=== PATIENT | female | born 1995 | race Two or more races ===

== ENCOUNTER 2024-09-28 02:35 | Emergency (ER) | payer MEDICAID, OTHER ==
[~2024-09-28] VITALS: Ht 147.3 cm; Wt 72.9 kg
[2024-09-28] MEDS ORDERED: ERY05OO OP (03:22)
--- NOTE | 2024-09-28 03:22 | ED.PDOC ---
Eye-HPI HPI Comments 29-YEAR-OLD FEMALE PRESENTS TO ER WITH RIGHT EYE COMPLAINT X2 DAYS. PATIENT REPORTS THAT SHE HAS BEEN EXPERIENCING REDNESS, MILD SWELLING TO RIGHT UPPER EYELID AND YELLOW CRUSTY DRAINAGE TO RIGHT EYE X2 DAYS. STATES THAT HER CHILDREN AT HOME HAVE ALSO BEEN EXPERIENCING SIMILAR SYMPTOMS AND WERE RECENTLY DIAGNOSED WITH PINK EYE. SHE REPORTS 8/10 BURNING/ITCHING PAIN TO RIGHT EYE. DENIES USE OF MEDICATIONS FOR CURRENT SYMPTOMS. PATIENT PRESENTS TO ER AMBULATORY ON ARRIVAL, WITH STEADY GAIT, IN NO DISTRESS. 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 History Family History Family History: Unknown Social History Smoker: Non-Smoker Alcohol: Denies ETOH Use Drugs: Denies Drug Use Lives In: Home Constitutional: denies: chills, diaphoresis, fatigue, fever, malaise, sweats, weakness, others EENTM: reports: others (As stated in HPI) Respiratory: denies: cough, hemoptysis, orthopnea, SOB at rest, shortness of breath, SOB with excertion, stridor, wheezing, others Cardiovascular: denies: chest pain, dizzy spells, diaphoresis, Dyspnea on exertion, edema, irregular heart beat, left arm pain, lightheadedness, palpitations, PND, syncope, others Gastrointestinal: denies: abdomen distended, abdominal pain, blood streaked bowels, constipated, diarrhea, dysphagia, difficulty swallowing, hematemesis, melena, nausea, poor appetite, poor fluid intake, rectal bleeding, rectal pain, vomiting, others Genitourinary: denies: abnormal vagina bleeding, burning, dyspareunia, dysuria, flank pain, frequency, hematuria, incontinence, pain, , vagina discharge, urgency, others Neurological: denies: dizziness, fainting, headache, left sided numbness, left sided weakness, numbness, paresthesia, pre-existing deficit, right sided numbness, right sided weakness, seizure, speech problems, tingling, tremors, weakness, others Musculoskeletal: denies: back pain, gout, joint pain, joint swelling, muscle pain, muscle stiffness, neck pain, others Integumetry: denies: bruises, change in color, change in hair/nails, dryness, laceration, lesions, lumps, rash, wounds, others Allergic/Immunocompromised: denies: Difficulty Healing, Frequent Infections, Hives, Itching, others Hematologic/Lymphatic: denies: anemia, blood clots, easy bleeding, easy bruising, swollen glands, others Endocrine: denies: excessive hunger, excessive sweating, excessive thirst, excessive urination, flushing, intolerance to cold, intolerance to heat, unexplained weight gain, unexplained weight loss, others Psychiatric: denies: anxiety, bipolar disorder, depression, hopeless, panic disorder, schizophrenia, sleepless, suicidal, others Physical Exam General Appearance: No Apparent Distress HEENT: PERRL/EOMI, Pharynx Normal, TMs Normal, Other (Mild yellow crusty drainage and subconjunctival injection noted to right eye, mild swelling also noted to right upper eyelid, no foreign body appreciated, no further skin changes noted) Neck: Full Range of Motion, Non-Tender, Normal Respiratory: Chest Non-Tender, Lungs Clear, No Accessory Muscle Use, No Re spiratory Distress, Normal Breath Sounds Cardiovascular: No Murmur, No Gallop, Regular Rate/Rhythm Breast Exam: Deferred Gastrointestinal: NOT DONE Genitalia: Deferred Pelvic: Deferred Rectal: Deferred Extremities: Normal capillary refill, Normal range of motion Neurologic: Alert, quill cleaner II-XII nml as Tested, No Motor Deficits, Normal Affect, Normal Mood, No Sensory Deficits Cerebellar Function: Normal Reflexes: Normal Skin: Dry, Normal Color, Warm Lymphatic: No Adenopathy Was a procedure done? Was a procedure done?: No Sedation Sedation?: No EENT DIFF Eye: Corneal Abrasion, Foreign Body-Corneal, Orbital Cellulits, Periorbital Cellulits X-Ray, Labs, Meds, VS ERYTHROMYCIN OINTMENT ORDERED, PATIENT EDUCATED ON PROPER USE/DOSAGE IMPORTANCE OF GOOD HAND HYGIENE DISCUSSED AND ADVISED ADVISED TO FOLLOW UP WITH OPHTHALMOLOGY IN 3-4 DAYS IF SYMPTOMS DO NOT IMPROVE ADVISED TO FOLLOW UP WITH PCP IN 1-2 DAYS PATIENT VERBALIZED UNDERSTANDING AND AGREEABLE WITH CURRENT PLAN OF CARE ADVISED TO RETURN TO ER IMMEDIATELY IF SYMPTOMS WORSEN Time of 1ST Reevaluation: 03:04 Reevaluation 1ST: N/A Patient Education/Counseling: Diagnosis, Treatment, Prognosis, Need For Follow Up Family Education/Counseling: No Family Present Departure 1 Departure Time of Disposition: 03:20 Impression: Primary Impression: Bacterial conjunctivitis of right eye Disposition: 01 HOME / SELF CARE / HOMELESS Condition: Stable e-Prescriptions Erythromycin (Erythromycin) 5 Mg/Gm Oin 1 MG OP 6XD for 7 Days, #1 OIN 0 Refills Prov: SRIDHAR BARNES 09/28/24 Discharged With: Self Critical Care Note Critical Care Time?: No Stability Stability form required: No Heart Score Heart Score: Heart Score Response (Comments) Value History N/A 0 EKG N/A 0 Age N/A 0 Risk Factors N/A 0 Troponin N/A 0 Total 0 SRIDHAR BARNES Sep 28, 2024 03:22
[2024-09-28 03:24] VITALS: BP 136/94; PULSE 80; RESP 12; TEMP 98.7; O2SAT 100
[2024-09-28] MEDS: ERYTHROMY OPTH OINT 5mg/gm 1gm or 3.5gm tube OP ONE (03:51)
== END 2024-09-28 03:45 | disposition home or self-care (01) ==
LOC: ER 02:35
DX: H10.89 Other conjunctivitis (principal); J45.909 Unspecified asthma, uncomplicated; Z98.890 Other specified postprocedural states

== ENCOUNTER 2025-08-15 11:34 | Observation (INO) | payer MEDICAID ==
[2025-08-15] VITALS (9 sets, daily range): BP systolic 119–131; BP diastolic 74–87; PULSE 99–129; RESP 14–18; TEMP 97.8–98.7; O2SAT 94–99
[~2025-08-15] VITALS: Ht 144.8 cm; Wt 76.2 kg
[~2025-08-15 11:34] MED LIST: ERY05OO OP
--- NOTE | 2025-08-15 12:16 | ED.PDOC ---
History of Present Illness HPI Comments 30-year-old female presents to the ER with spouse, prior medical history of asthma: Surgical history of and the chief complaint of shortness a breath. Patient reports on having tingling sensation on the bilateral hands associated with headache, diarrhea and shortness a breath with ambulation since Thursday of 08/13/2025. Denies any other symptoms at this time. Denies chills, fever, N/V, CP. No other associated symptoms, modifiers, recent injuries or sick contacts present at this time. 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 MAINTAINER History Family History Family History: Reviewed,noncontributory to illness, Unknown Social History Smoker: Non-Smoker Alcohol: Denies ETOH Use Drugs: Denies Drug Use Lives In: Home Constitutional: denies: chills, diaphoresis, fatigue, fever, malaise, sweats, weakness, others EENTM: denies: blurred vision, double vision, ear bleeding, ear discharge, ear drainage, ear pain, ear ringing, eye pain, eye redness, hearing loss, mouth pain, mouth swelling, nasal discharge, nose bleeding, nose congestion, nose pain, photophobia, tearing, throat pain, throat swelling, voice changes, others Respiratory: reports: shortness of breath, SOB with excertion; denies: cough, hemoptysis, orthopnea, SOB at rest, stridor, wheezing, others Cardiovascular: denies: chest pain, dizzy spells, diaphoresis, Dyspnea on exertion, edema, irregular heart beat, left arm pain, lightheadedness, palpitations, PND, syncope, others Gastrointestinal: reports: diarrhea; denies: abdomen distended, abdominal pain, blood streaked bowels, constipated, dysphagia, difficulty swallowing, hematemesis, melena, nausea, poor appetite, poor fluid intake, rectal bleeding, rectal pain, vomiting, others Genitourinary: denies: abnormal vagina bleeding, burning, dyspareunia, dysuria, flank pain, frequency, hematuria, incontinence, pain, , vagina discharge, urgency, others Neurological: reports: headache, tingling (Bilateral hands); denies: dizziness, fainting, left sided numbness, left sided weakness, numbness, paresthesia, pre- existing deficit, right sided numbness, right sided weakness, seizure, speech problems, tremors, weakness, others Musculoskeletal: denies: back pain, gout, joint pain, joint swelling, muscle pain, muscle stiffness, neck pain, others Integumetry: denies: bruises, change in color, change in hair/nails, dryness, laceration, lesions, lumps, rash, wounds, others Allergic/Immunocompromised: denies: Difficulty Healing, Frequent Infections, Hives, Itching, others Hematologic/Lymphatic: denies: anemia, blood clots, easy bleeding, easy bruising, swollen glands, others Endocrine: denies: excessive hunger, excessive sweating, excessive thirst, excessive urination, flushing, intolerance to cold, intolerance to heat, unexplained weight gain, unexplained weight loss, others Psychiatric: denies: anxiety, bipolar disorder, depression, hopeless, panic disorder, schizophrenia, sleepless, suicidal, others All Other Systems: Reviewed and Negative Physical Exam General Appearance: Moderate Distress, Normal HEENT: Normal ENT Inspection, Pharynx Normal, TMs Normal Neck: Full Range of Motion, Non-Tender, Normal, Normal Inspection Respiratory: Chest Non-Tender, No Accessory Muscle Use, No Respiratory Distress, Other (Coarse breath sounds) Cardiovascular: No Edema, No JVD, No Murmur, No Gallop, Normal Peripheral Pulses, Regular Rate/Rhythm Breast Exam: Deferred Gastrointestinal: No Organomegaly, Non Tender, No Pulsatile Mass, Normal Bowel Sounds, Soft Genitalia: Deferred Pelvic: Deferred Rectal: Deferred Extremities: No calf tenderness, Normal capillary refill, Normal inspection, Normal range of motion, Non-tender, No pedal edema Musculoskeletal : Apperance: Normal Neurologic: Alert, real estate rental agent II-XII nml as Tested, No Motor Deficits, Normal Affect, Normal Mood, No Sensory Deficits Cerebellar Function: Normal Reflexes: Normal Skin: Dry, Normal Color, Warm Peripheral Pulses: 3+ Radial (R), 3+ Radial (L) Lymphatic: No Adenopathy Was a procedure done? Was a procedure done?: No Differential Dx Considerations may include: Pneumonitis Electrolyte imbalance X-Ray, Labs, Meds, VS Vital Signs Date Time Temp Pulse Resp B/P (MAP) Pulse Ox O2 Delivery O2 Flow Rate FiO2 08/15/25 13:01 18 97 Room Air* 0 21 08/15/25 11:38 98.5 101 19 145/74 97 98.5 Lab Test 08/15/25 13:43 08/15/25 12:58 08/15/25 12:56 08/15/25 12:12 Range/Units Troponin I High Sensitivity Pending < 3 L </=34 ng/L White Blood Count 9.3 4.4-10.8 10^3/uL Red Blood Count 4.94 4.0-5.20 10^6/uL Hemoglobin 14.4 12.2-16.2 g/dL Hematocrit 42.3 36.0-46.0 % Mean Corpuscular Volume 85.8 80.0-100.0 fL Mean Corpuscular Hemoglobin 29.1 28.0-32.0 pg Mean Corpuscular Hemoglobin Concent 33.9 32.0-36.0 g/dL Red Cell Distribution Width 14.2 11.8-14.3 % Platelet Count 213 140-450 10^3/uL Mean Platelet Volume 10.0 6.9-10.8 fL Neutrophils (%) (Auto) 62.0 37.0-80.0 % Lymphocytes (%) (Auto) 19.8 10.0-50.0 % Monocytes (%) (Auto) 10.3 0.0-12.0 % Eosinophils (%) (Auto) 7.1 H 0.0-7.0 % Basophils (%) (Auto) 0.8 0.0-2.0 % Neutrophils # (Auto) 5.8 1.6-8.6 10 ^3/uL Lymphocytes # (Auto) 1.8 0.4-5.4 10 ^3/uL Monocytes # (Auto) 1.0 0-1.3 10 ^3/uL Eosinophils # (Auto) 0.7 0-0.8 10 ^3/uL Basophils # (Auto) 0.1 0-0.2 10 ^3/uL Nucleated Red Blood Cells 0.0 % Sodium Level 142 136-145 mmol/L Potassium Level 4.0 3.5-5.1 mmol/L Chloride Level 106 98-107 mmol/L Carbon Dioxide Level 27 20-31 mmol/L Anion Gap 9 5-15 Blood Urea Nitrogen 9 9-23 mg/dL Creatinine 0.78 0.550-1.02 mg/dL Glomerular Filtration Rate Calc 103 >90 mL/min BUN/Creatinine Ratio 11.5 10.0-20.0 Serum Glucose 105 74-106 mg/dL Calcium Level 9.8 8.7-10.4 mg/dL Urine Color Colorless Yellow Urine Clarity Clear Clear Urine pH 7.0 5.0-9.0 Urine Specific [place] 1.009 1.001-1.035 Urine Protein Negative Negative Urine Ketones Negative Negative Urine Blood Negative Negative /uL Urine Nitrite Negative Negative Urine Bilirubin Negative Negative Urine Urobilinogen Normal Negative mg/dL Urine Leukocyte Esterase Negative Negative /uL Urine RBC 2 0 - 4 /hpf Urine Microscopic WBC < 1 0-5 /HPF Urine Squamous Epithelial Cells Few <5 /hpf Urine Bacteria Few H None Seen /hpf Urine Glucose Normal Normal mg/dL Current Medications Medications (Trade) Dose Ordered Sig/Rachel Route Start Time Stop Time Status Last Admin Albuterol (Ventolin Medneb) 5 mg ONCE ONCE NEB 08/15/25 12:30 08/15/25 12:31 DC 08/15/25 13:02 Ipratropium [place] (Atrovent Medneb) 0.5 mg ONCE ONCE NEB 08/15/25 12:30 08/15/25 12:31 DC 08/15/25 13:01 PROCEDURE(s): CXRP - CHEST PORTABLE IMPRESSION: No acute intrathoracic abnormality. Patient alert. Complaining of shortness a breath. Vitals stable. Answering questions. Was given steroid. Was given breathing treatment. Chest x-ray reviewed does not show any acute process possible early pneumonitis. Cardiac marker within normal limits. WBC within normal limits. Saturation pristine on room air. States that she is feeling much better. Was given prescription of prednisone amoxicillin antibiotic. Explained to the patient. Continue monitoring. Time of 1ST Reevaluation: 12:45 Reevaluation 1ST: Unchanged Patient Education/Counseling: Diagnosis, Treatment, Prognosis Family Education/Counseling: Diagnosis, Treatment, Prognosis SEPSIS Sepsis Screen Date sepsis recognized/suspect: Aug 15, 2025 Time Sepsis recognized/suspect: 1138 Recent Procedure: No On Antibiotic Therapy: No Respiratory Rate >20: No Heart Rate >90: Yes Temp<36 C (96.8 F) or >38.3 C: No SBP <90 or MAP <65 mmHG: No New Acute Mental Status Change: No Is the patient on CPAP, BIPAP,: No Physician Orders Chest Portable (08/15/25 12:25) Troponin-I Hs (08/15/25 13:25) Troponin-I Hs (08/15/25 15:25) Vital Signs Date Time Temp Pulse Resp B/P (MAP) Pulse Ox O2 Delivery O2 Flow Rate FiO2 08/15/25 13:01 18 97 Room Air* 0 21 08/15/25 11:38 98.5 101 19 145/74 97 98.5 Laboratory Tests Test 08/15/25 12:58 White Blood Count 9.3 10^3/uL (4.4-10.8) Medications Medications Dose Ordered Sig/Rachel Route Start Time Stop Time Status Last Admin Dose Admin Albuterol 5 mg ONCE ONCE NEB 08/15/25 12:30 08/15/25 12:31 DC 08/15/25 13:02 Ipratropium [place] 0.5 mg ONCE ONCE NEB 08/15/25 12:30 08/15/25 12:31 DC 08/15/25 13:01 Departure 1 Departure Time of Disposition: 14:16 Impression: Primary Impression: Asthma exacerbation Qualified Codes: J45.41 - Moderate persistent asthma with (acute) exacerbation Disposition: 09 ADMITTED INPATIENT Admit to: Med Surg Condition: Guarded Critical Care Note Critical Care Time?: Yes (90 min-critical care time only) Stability Stability form required: No Heart Score Heart Score: Heart Score Response (Comments) Value History N/A 0 EKG N/A 0 Age N/A 0 Risk Factors N/A 0 Troponin N/A 0 Total 0 I personally scribed for SONA BRINK MD ([email or web address]) on 08/15/25 at 12:16. Electronically submitted by Stvee Keith ([email or web address]). I personally scribed for SONA BRINK MD ([email or web address]) on 08/15/25 at 13:04. Electronically submitted by Jennie Dominguez ([email or web address]). SONA BRINK MD Aug 15, 2025 12:16
--- NOTE | 2025-08-15 12:56 | DVH ---
XY CHEST PORTABLE, HISTORY: sob COMPARISON: None None TECHNICAL DATA: 1 view of the chest was obtained. FINDINGS: Lines and tubes: None Cardiomediastinal silhouette: normal Pulmonary vasculature: normal Lung expansion: normal Lung airspace: normal Lung interstitium: normal Pleura: normal Pneumothorax: no Bones: Unremarkable Other: no IMPRESSION: No acute intrathoracic abnormality.
[2025-08-15] MEDS: IPRATROPIUM BROM 0.5 MG/2.5ML INH SOL NEB ONE (13:01)
[2025-08-15] MEDS: ALBUTEROL SULF 2.5 MG/0.5ML(0.5%) NEB SOLN NEB ONE ×2 (13:02→14:53)
[2025-08-15 13:14] LABS: Urine Protein, UAD Negative (Negative)
[2025-08-15 13:16] LABS: Hematocrit 42.3 % (36.0-46.0); Hemoglobin 14.4 g/dL (12.2-16.2); Mean Corpuscular Hemoglobin 29.1 pg (28.0-32.0); Mean Corpuscular Volume 85.8 fL (80.0-100.0); Nucleated Red Blood Cells % 0.0 %
[2025-08-15 13:26] LABS: Chloride 106 mmol/L (98-107); Potassium 4.0 mmol/L (3.5-5.1); Sodium 142 mmol/L (136-145)
[2025-08-15 13:27] LABS: Anion Gap 9 (5-15); Calcium 9.8 mg/dL (8.7-10.4); Carbon Dioxide 27 mmol/L (20-31)
[2025-08-15 13:32] LABS: BUN/Creatinine Ratio 11.5 (10.0-20.0); Glucose 105 mg/dL (74-106)
[2025-08-15 13:36] LABS: Blood Urea Nitrogen 9 mg/dL (9-23)
[2025-08-15] MEDS ORDERED: ALBUTEROL SULF 2.5 MG/0.5ML(0.5%) NEB SOLN ONE (14:54)
[2025-08-15] MEDS: MAGNESIUM SULFATE 1GM/100ML 100 ML IV ONE (15:03)
[2025-08-15] MEDS: methylPREDNISolone SOD SUCC 125 MG/2 ML VL IV ONE (15:03)
[2025-08-15] MEDS ORDERED: ACETAMINOPHEN 325 MG TAB PO PRN (15:30)
[2025-08-15 15:32] LABS: COVID19 ANTIGEN SOFIA FIA NEGATIVE (NEGATIVE)
[2025-08-15] MEDS: SODIUM CHLORIDE 0.9% 1,000 ML IV SCH (15:45)
--- NOTE | 2025-08-15 15:51 | DVHHPRES ---
History of Present Illness Resident Creating Document: GARY SALES RESIDENT History of Present Illness Sasha Montana is a 30-year old female with past medical history of asthma who came to the ER with the chief complaint of shortness of breath since 2 days. Patient mentions she had shortness of breath along with some congestion and runny nose since 2 days and had to use her albuterol inhaler more frequently than normal, that is every 4 hours. Patient also mentions she had cough with phlegm and cold sweats, also associated with headache and body aches since 2 days. She denies any fever or chest pain. On evaluation, she says she has numbness and trembling of her hands with a tingling sensation in her left hand more than the right hand. Past medical history: asthma (since she was 2 years old), gestational hypertension Past surgical history: C-sectionx2 Home medications:none Social & Personal history: lives at home with family Smoking: remote history of cigarette smoking Alcohol: denies Drugs:denies Allergies: no known allergies Review of Systems Review of Systems Patient seen and examined at bedside. Patient is alert and oriented to time, place person and responding to all questions. Eyes: No Pain, No Vision change, No Conjunctivae inflammation, No Eyelid inflammation, No Redness ENT: No Ear pain, No Ear discharge, No Nose pain, No Nose discharge, Nose congestion, No Mouth pain, No Mouth swelling, No Throat pain, No Throat swelling Cardiovascular: No Chest Pain, No Palpitations, No Orthopnea, No Paroxysmal No Dyspnea, No Edema, No Lt Headedness Respiratory: Cough,Shortness of breath, No SOB with exertion, No Wheezing, No Hemoptysis, No Pleuritic Pain, Sputum Gastrointestinal: No Nausea, No Vomiting, No Abdominal Pain, No Diarrhea, No Constipation, No Melena, No Hematochezia Genitourinary: No Dysuria, No Frequency, No Incontinence, No Hematuria, No Retention Neurological: tingling and numbness in both hands Allergies: Coded Allergies: NO KNOWN ALLERGIES (Unverified , 09/28/24) Medications Current Medications Medications Dose Ordered Sig/Rachel Route Start Time Stop Time Status Last Admin Dose Admin Acetaminophen 325 mg Q4HP PRN PO 08/15/25 15:30 UNV Exam Vital Signs Vital Signs Date Time Temp Pulse Resp B/P (MAP) Pulse Ox O2 Delivery O2 Flow Rate FiO2 08/15/25 14:53 17 99 Room Air* 0 21 08/15/25 11:38 98.5 101 145/74 98.5 Exam General Appearance: Cooperative. Well developed. Well nourished. NAD Head Exam: Normal inspection Neck Exam: Normal inspection. Non-tender. Normal alignment Pulmonary/Respiratory: Chest non-tender. Clear bilateral breath sounds, no crackles, no wheezing. Cardiovascular/Chest: Regular rate and rhythm. No murmurs. No JVD. Peripheral Pulses: 2+ Radial (R). 2+ Radial (L). 2+ Pedal (R). 2+ Pedal (L) Abdominal Exam: Normal bowel sounds. Soft. normal abdomen, no visible veins, Nontender. No hepatospenomegaly. No masses Ankle Exam: Negative ankle edema Lower extremities: Negative lower extremity edema Neuro/Mental Status: A&O x4. Coherent. Thoughts/Psych: Normal thought pattern. Appropriate mood and affect. Good judgement and insight Skin Exam: Normal inspection. Normal color. Warm. Dry Labs/Xrays Labs Test 08/15/25 15:00 08/15/25 13:43 08/15/25 12:58 08/15/25 12:12 Range/Units Influenza Type A Antigen Negative Negative Influenza Type B Antigen Negative Negative SARS-CoV-2 Antigen (Rapid) Negative NEGATIVE Troponin I High Sensitivity < 3 L </=34 ng/L White Blood Count 9.3 4.4-10.8 10^3/uL Red Blood Count 4.94 4.0-5.20 10^6/uL Hemoglobin 14.4 12.2-16.2 g/dL Hematocrit 42.3 36.0-46.0 % Mean Corpuscular Volume 85.8 80.0-100.0 fL Mean Corpuscular Hemoglobin 29.1 28.0-32.0 pg Mean Corpuscular Hemoglobin Concent 33.9 32.0-36.0 g/dL Red Cell Distribution Width 14.2 11.8-14.3 % Platelet Count 213 140-450 10^3/uL Mean Platelet Volume 10.0 6.9-10.8 fL Neutrophils (%) (Auto) 62.0 37.0-80.0 % Lymphocytes (%) (Auto) 19.8 10.0-50.0 % Monocytes (%) (Auto) 10.3 0.0-12.0 % Eosinophils (%) (Auto) 7.1 H 0.0-7.0 % Basophils (%) (Auto) 0.8 0.0-2.0 % Neutrophils # (Auto) 5.8 1.6-8.6 10 ^3/uL Lymphocytes # (Auto) 1.8 0.4-5.4 10 ^3/uL Monocytes # (Auto) 1.0 0-1.3 10 ^3/uL Eosinophils # (Auto) 0.7 0-0.8 10 ^3/uL Basophils # (Auto) 0.1 0-0.2 10 ^3/uL Nucleated Red Blood Cells 0.0 % Sodium Level 142 136-145 mmol/L Potassium Level 4.0 3.5-5.1 mmol/L Chloride Level 106 98-107 mmol/L Carbon Dioxide Level 27 20-31 mmol/L Anion Gap 9 5-15 Blood Urea Nitrogen 9 9-23 mg/dL Creatinine 0.78 0.550-1.02 mg/dL Glomerular Filtration Rate Calc 103 >90 mL/min BUN/Creatinine Ratio 11.5 10.0-20.0 Serum Glucose 105 74-106 mg/dL Calcium Level 9.8 8.7-10.4 mg/dL Urine Color Colorless Yellow Urine Clarity Clear Clear Urine pH 7.0 5.0-9.0 Urine Specific [place] 1.009 1.001-1.035 Urine Protein Negative Negative Urine Ketones Negative Negative Urine Blood Negative Negative /uL Urine Nitrite Negative Negative Urine Bilirubin Negative Negative Urine Urobilinogen Normal Negative mg/dL Urine Leukocyte Esterase Negative Negative /uL Urine RBC 2 0 - 4 /hpf Urine Microscopic WBC < 1 0-5 /HPF Urine Squamous Epithelial Cells Few <5 /hpf Urine Bacteria Few H None Seen /hpf Urine Glucose Normal Normal mg/dL SEPSIS Sepsis Screen Date sepsis recognized/suspect: Aug 15, 2025 Time Sepsis recognized/suspect: 1138 Recent Procedure: No On Antibiotic Therapy: No Respiratory Rate >20: No Heart Rate >90: Yes Temp<36 C (96.8 F) or >38.3 C: No SBP <90 or MAP <65 mmHG: No New Acute Mental Status Change: No Is the patient on CPAP, BIPAP,: No Physician Orders Chest Portable (08/15/25 12:25) Admit (08/15/25 15:19) Allergies (08/15/25 15:19) Code Status (08/15/25 15:19) Acetaminophen Tablet (Tylenol Tablet) (08/15/25 15:30) Complete Blood Count (08/16/25 04:00) Comprehensive Metabolic Panel (08/16/25 04:00) Condition: Unstable (08/15/25 15:19) Regular Diet (08/15/25 Dinner) Electrocardigram (08/15/25 15:21) Thyroid Stimulating Hormone (08/15/25 15:24) Drug Screen (08/15/25 15:26) Prednisone Tablet (08/16/25 10:00) Levalbuterol Hcl (Xopenex Medneb) (08/15/25 18:00) Ipratropium Medneb (Atrovent Medneb) (08/15/25 18:00) Magnesium (08/15/25 15:33) Sodium Chloride 0.9% (08/15/25 15:45) Vital Signs Date Time Temp Pulse Resp B/P (MAP) Pulse Ox O2 Delivery O2 Flow Rate FiO2 08/15/25 14:53 17 99 Room Air* 0 21 08/15/25 13:01 18 97 Room Air* 0 21 08/15/25 11:38 98.5 101 19 145/74 97 98.5 Laboratory Tests Test 08/15/25 12:58 White Blood Count 9.3 10^3/uL (4.4-10.8) Medications Medications Dose Ordered Sig/Rachel Route Start Time Stop Time Status Last Admin Dose Admin Albuterol 5 mg ONCE ONCE NEB 08/15/25 12:30 08/15/25 12:31 DC 08/15/25 13:02 5 MG Albuterol 20 mg ONCE ONCE NEB 08/15/25 14:30 08/15/25 14:31 DC 08/15/25 14:53 20 MG Ipratropium [place] 0.5 mg ONCE ONCE NEB 08/15/25 12:30 08/15/25 12:31 DC 08/15/25 13:01 0.5 MG Magnesium Sulfate/ Dextrose 100 ml @ 100 mls/hr ONCE ONCE IV 08/15/25 12:30 08/15/25 13:29 DC 08/15/25 15:03 100 MLS/HR Methylprednisolone Sodium Succinate 125 mg ONCE ONCE IV 08/15/25 12:30 08/15/25 12:31 DC 08/15/25 15:03 125 MG Assessment/Plan Assessment/Plan Acute hypoxic respiratory failure due to acute asthma exacerbation -started on levalbuterol 1.25mg and ipratropium 0.5mg mednebs q 4 hours -prednisone 40mg po daily -covid and influenza negative Rule out ACS -EKG ordered -tropes x 3 negative History of anxiety/panic attacks -monitor PUD prophylaxis: not idicated DVT prophylaxis:not indicated Goals of care: Full code, discussed for >20 minutes Plan discussed with Dr Florez Plan discussed with: Patient My Orders Orders - GARY SALES RESIDENT Procedure Category Date Status Time Admit ADMIT 08/15/25 Transmitted 15:19 Allergies FAN 08/15/25 In Process 15:19 Code Status CODE 08/15/25 Transmitted 15:19 Acetaminophen Tablet PHA 08/15/25 In Process (Tylenol Tablet) 15:30 Complete Blood Count LAB 08/16/25 Verified 04:00 Comprehensive LAB 08/16/25 Verified Metabolic Panel 04:00 Condition: Unstable FAN 08/15/25 In Process 15:19 Regular Diet DIET 08/15/25 Transmitted Dinner Electrocardigram EKG 08/15/25 Logged 15:21 Thyroid Stimulating LAB 08/15/25 Logged Hormone 15:24 Drug Screen LAB 08/15/25 Logged 15:26 Prednisone Tablet PHA 08/16/25 Logged 10:00 Levalbuterol Hcl PHA 08/15/25 Logged (Xopenex Medneb) 18:00 Ipratropium Medneb PHA 08/15/25 Logged (Atrovent Medneb) 18:00 Magnesium LAB 08/15/25 Logged 15:33 Sodium Chloride 0.9% PHA 08/15/25 Logged 15:45 Date of Service: Aug 15, 2025 Billing Provider: KIET FLOREZ MD Common Visit Codes: [id number] INP/OBS CARE (HIGH) GARY SALES RESIDENT Aug 15, 2025 15:51 KIET FLOREZ MD Aug 16, 2025 21:38
[2025-08-15] MEDS: IPRATROPIUM BROM 0.5 MG/2.5ML INH SOL NEB SCH (18:56)
[2025-08-15] MEDS: LEVALBUTEROL HCL 1.25 MG/3 ML NEB NEB SCH (18:57)
--- NOTE | 2025-08-15 19:10 | ECG ---
[facility] Test Date: 2025-08-15 Test Time: 15:32:47 Pat Name: RITA PAREKH Department: [facility] ED Room: 0240 Gender: F Pearl Fisherman: minor : 1995 Requested By: GARY SALES Order Number: [id number] Reading MD: Fran Sykes Measurements Intervals [place] Rate: 125 P: 72 [place]: 145 QRS: 44 QRSD: 83 T: 36 QT: 319 QTc: 460 Interpretive Statements Sinus tachycardia Low voltage, precordial leads Borderline repolarization abnormality Electronically Signed On 08-22-2025 13:17:50 PST by Fran Sykes Please click the below link to view image of tracing.
[2025-08-15 21:26] LABS: Amphetamine Screen, Urine Neg (NEGATIVE); Barbiturate Scree,Urine Neg (NEGATIVE); Benzodiazephine Screen, Urine Neg (NEGATIVE); Cannabinoid Screen, Urine Neg (NEGATIVE); Cocaine Screen, Urine Neg (NEGATIVE); Opiate Scree,Urine Neg (NEGATIVE); Phencyclidine Screen, Urine Neg (NEGATIVE)
[2025-08-16] VITALS (17 sets, daily range): BP systolic 114–132; BP diastolic 69–81; PULSE 75–111; RESP 14–22; TEMP 98–98.8; O2SAT 95–100
[2025-08-16 06:41] LABS: Hematocrit 37.8 % (36.0-46.0); Hemoglobin 12.8 g/dL (12.2-16.2); Mean Corpuscular Hemoglobin 29.1 pg (28.0-32.0); Mean Corpuscular Volume 86.3 fL (80.0-100.0); Nucleated Red Blood Cells % 0.0 %
[2025-08-16 06:50] LABS: Alanine Aminotransferase 12 U/L (7-40); Alkaline Phosphatase 55 U/L (46-116); Anion Gap 12 (5-15); BUN/Creatinine Ratio 9.9 (10.0-20.0); Calcium 9.0 mg/dL (8.7-10.4); Carbon Dioxide 21 mmol/L (20-31); Chloride 107 mmol/L (98-107); Potassium 4.2 mmol/L (3.5-5.1); Sodium 140 mmol/L (136-145); Total Protein 7.4 g/dL (5.7-8.2)
[2025-08-16 06:51] LABS: Albumin 4.5 g/dL (3.2-4.8)
[2025-08-16 06:53] LABS: Bilirubin, Total 0.2 mg/dL (0.2-1.0); Blood Urea Nitrogen 7 mg/dL (9-23); Glucose 166 mg/dL (74-106)
[2025-08-16] MEDS: LEVALBUTEROL HCL 1.25 MG/3 ML NEB NEB SCH (10:24)
[2025-08-16] MEDS: predniSONE 20 MG TAB PO SCH (10:29)
--- NOTE | 2025-08-16 16:19 | DVHPNRES ---
Progress Note Date Seen: Aug 16, 2025 Resident Creating Document: GARY SALES RESIDENT Medical Necessity Reason Pt with a Central, PICC or Fol: No Subjective Review of Systems Sasha Montana is a 30-year old female with past medical history of asthma who came to the ER with the chief complaint of shortness of breath since 2 days. Patient mentions she had shortness of breath along with some congestion and runny nose since 2 days and had to use her albuterol inhaler more frequently than normal, that is every 4 hours. Patient also mentions she had cough with phlegm and cold sweats, also associated with headache and body aches since 2 days. She denies any fever or chest pain. On evaluation, she says she has numbness and trembling of her hands with a tingling sensation in her left hand more than the right hand. Past medical history: asthma (since she was 2 years old), gestational hypertension Past surgical history: C-sectionx2 Home medications:none Social & Personal history: lives at home with family Smoking: remote history of cigarette smoking Alcohol: denies Drugs:denies Allergies: no known allergies Patient seen and examined at bedside. Patient is alert and oriented to time, place person and responding to all questions. Eyes: No Pain, No Vision change, No Conjunctivae inflammation, No Eyelid inflammation, No Redness ENT: No Ear pain, No Ear discharge, No Nose pain, No Nose discharge, Nose congestion, No Mouth pain, No Mouth swelling, No Throat pain, No Throat swelling Cardiovascular: No Chest Pain, No Palpitations, No Orthopnea, No Paroxysmal No Dyspnea, No Edema, No Lt Headedness Respiratory: Cough,Shortness of breath, No SOB with exertion, No Wheezing, No Hemoptysis, No Pleuritic Pain, Sputum Gastrointestinal: No Nausea, No Vomiting, No Abdominal Pain, No Diarrhea, No Constipation, No Melena, No Hematochezia Genitourinary: No Dysuria, No Frequency, No Incontinence, No Hematuria, No Retention Neurological: tingling and numbness in both hands Allergies: Coded Allergies: NO KNOWN ALLERGIES (Unverified , 09/28/24) 08/16/25- The patient was seen at bedside today. She is doing well clinically. She is taking the scheduled med nebs every 4 hours and states she is doing better. She was explained she will have to step up her asthma medication when she is discharged home and she agreed to the same. Possible discharge for tomorrow was discussed with the patient. Objective vital signs Vital Sign Date Time Temp Pulse Resp B/P (MAP) Pulse Ox O2 Delivery O2 Flow Rate FiO2 08/16/25 12:52 98.8 93 18 121/80 (94) 95 98.8 08/16/25 10:26 Room Air 0.0 08/16/25 10:26 21 Total Intake and Output 08/15/25 08/15/25 08/16/25 15:00 23:00 07:00 Intake Total 100 ml 650 ml Balance 100 ml 650 ml medications Current Medications Medications Dose Ordered Sig/Rachel Route Start Time Stop Time Status Last Admin Dose Admin Acetaminophen 325 mg Q4HP PRN PO 08/15/25 15:30 Prednisone 40 mg DAILY PO 08/16/25 10:00 08/16/25 10:29 40 MG Ipratropium [place] 0.5 mg Q4HR NEB 08/15/25 18:00 08/16/25 10:24 0.5 MG Sodium Chloride 1,000 ml @ 75 mls/hr [id number] IV 08/15/25 15:45 08/16/25 06:33 75 MLS/HR Levalbuterol HCl 0.625 mg Q4HR NEB 08/16/25 10:00 08/16/25 10:24 0.625 MG Examination General Appearance: Cooperative. Well developed. Well nourished. NAD Head Exam: Normal inspection Neck Exam: Normal inspection. Non-tender. Normal alignment Pulmonary/Respiratory: Chest non-tender. Clear bilateral breath sounds, no crackles, no wheezing. Cardiovascular/Chest: Regular rate and rhythm. No murmurs. No JVD. Peripheral Pulses: 2+ Radial (R). 2+ Radial (L). 2+ Pedal (R). 2+ Pedal (L) Abdominal Exam: Normal bowel sounds. Soft. normal abdomen, no visible veins, Nontender. No hepatospenomegaly. No masses Ankle Exam: Negative ankle edema Lower extremities: Negative lower extremity edema Neuro/Mental Status: A&O x4. Coherent. Thoughts/Psych: Normal thought pattern. Appropriate mood and affect. Good judgement and insight Skin Exam: Normal inspection. Normal color. Warm. Dry laboratory and microbiology Laboratory Tests 08/16/25 05:29 Test 10/29/25 05:29 Range/Units Serum Glucose 166 H 74-106 mg/dL Labs and/or images reviewed: Labs reviewed by me, Image(s) reviewed by me Problem List/Assessment/Plan Problem List/Assessment/Plan Acute hypoxic respiratory failure due to acute asthma exacerbation -started on levalbuterol 1.25mg and ipratropium 0.5mg mednebs q 4 hours -prednisone 40mg po daily -covid and influenza negative Rule out ACS -EKG ordered -tropes x 3 negative History of anxiety/panic attacks -monitor PUD prophylaxis: not idicated DVT prophylaxis:not indicated Goals of care: Full code, discussed for >20 minutes Plan discussed with Dr Florez Plan discussed with: Patient My Orders My Orders Orders - GARY SALES RESIDENT Procedure Category Date Status Time Admit ADMIT 08/16/25 Transmitted 13:23 Date of Service: Aug 16, 2025 Billing Provider: KIET FLOREZ MD Common Visit Codes: [id number] INP/OBS CARE(HIGH) GARY SALES RESIDENT Aug 16, 2025 16:19 KIET FLOREZ MD Aug 16, 2025 21:39
[2025-08-17] VITALS (13 sets, daily range): BP systolic 123–130; BP diastolic 77–84; PULSE 77–108; RESP 18; TEMP 97.5–98.6; O2SAT 93–99
[2025-08-17 06:00] LABS: Hematocrit 37.2 % (36.0-46.0); Hemoglobin 12.4 g/dL (12.2-16.2); Mean Corpuscular Hemoglobin 28.6 pg (28.0-32.0); Mean Corpuscular Volume 85.8 fL (80.0-100.0); Nucleated Red Blood Cells % 0.0 %
[2025-08-17 06:13] LABS: Anion Gap 11 (5-15); Carbon Dioxide 23 mmol/L (20-31); Potassium 4.0 mmol/L (3.5-5.1); Sodium 142 mmol/L (136-145)
[2025-08-17 06:14] LABS: Calcium 8.8 mg/dL (8.7-10.4); Chloride 108 mmol/L (98-107)
[2025-08-17 06:19] LABS: BUN/Creatinine Ratio 12.1 (10.0-20.0)
[2025-08-17 06:25] LABS: Blood Urea Nitrogen 8 mg/dL (9-23); Glucose 110 mg/dL (74-106)
[2025-08-17] MEDS: ACETAMINOPHEN 325 MG TAB PO ONE (08:00)
[2025-08-17] MEDS ORDERED: PRED20TA2 PO (11:37)
[2025-08-17] MEDS ORDERED: BUDE1AER5 IN (11:37)
[2025-08-17] MEDS ORDERED: IPRATROPIUM BROM 0.5 MG/2.5ML INH SOL ONE (13:59)
[2025-08-17] MEDS ORDERED: LEVALBUTEROL HCL 1.25 MG/3 ML NEB ONE (14:00)
--- NOTE | 2025-08-18 11:05 | DVHDSRES ---
Discharge Summary Date of Admission Resident Creating Document: GARY SALES RESIDENT Aug 16, 2025 at 13:23 Date of Discharge: Aug 17, 2025 Admitting Diagnosis Acute asthma exacerbation Labs/Diagnostic Data: Laboratory Results Test 08/17/25 05:10 08/16/25 05:29 08/15/25 15:00 08/15/25 13:43 White Blood Count 16.3 10^3/uL (4.4-10.8) Red Blood Count 4.34 10^6/uL (4.0-5.20) Hemoglobin 12.4 g/dL (12.2-16.2) Hematocrit 37.2 % (36.0-46.0) Mean Corpuscular Volume 85.8 fL (80.0-100.0) Mean Corpuscular Hemoglobin 28.6 pg (28.0-32.0) Mean Corpuscular Hemoglobin Concent 33.4 g/dL (32.0-36.0) Red Cell Distribution Width 14.4 % (11.8-14.3) Platelet Count 216 10^3/uL (140-450) Mean Platelet Volume 10.3 fL (6.9-10.8) Neutrophils (%) (Auto) 76.7 % (37.0-80.0) Lymphocytes (%) (Auto) 16.3 % (10.0-50.0) Monocytes (%) (Auto) 6.5 % (0.0-12.0) Eosinophils (%) (Auto) 0.1 % (0.0-7.0) Basophils (%) (Auto) 0.4 % (0.0-2.0) Neutrophils # (Auto) 12.5 10 ^3/uL (1.6-8.6) Lymphocytes # (Auto) 2.7 10 ^3/uL (0.4-5.4) Monocytes # (Auto) 1.1 10 ^3/uL (0-1.3) Eosinophils # (Auto) 0 10 ^3/uL (0-0.8) Basophils # (Auto) 0.1 10 ^3/uL (0-0.2) Nucleated Red Blood Cells 0.0 % Sodium Level 142 mmol/L (136-145) Potassium Level 4.0 mmol/L (3.5-5.1) Chloride Level 108 mmol/L (98-107) Carbon Dioxide Level 23 mmol/L (20-31) Anion Gap 11 (5-15) Blood Urea Nitrogen 8 mg/dL (9-23) Creatinine 0.66 mg/dL (0.550-1.02) Glomerular Filtration Rate Calc 119 mL/min (>90) BUN/Creatinine Ratio 12.1 (10.0-20.0) Serum Glucose 110 mg/dL (74-106) Calcium Level 8.8 mg/dL (8.7-10.4) Total Bilirubin 0.2 mg/dL (0.2-1.0) Aspartate Amino Transferase (AST) 12 U/L (13-40) Alanine Aminotransferase (ALT) 12 U/L (7-40) Alkaline Phosphatase 55 U/L (46-116) Total Protein 7.4 g/dL (5.7-8.2) Albumin 4.5 g/dL (3.2-4.8) Influenza Type A Antigen Negative (Negative) Influenza Type B Antigen Negative (Negative) SARS-CoV-2 Antigen (Rapid) Negative (NEGATIVE) Magnesium Level 2.0 mg/dL (1.6-2.6) Troponin I High Sensitivity < 3 ng/L (</=34) Thyroid Stimulating Hormone (TSH) 1.39 uIU/mL (0.55-4.78) Test 08/15/25 12:12 Urine Color Colorless (Yellow) Urine Clarity Clear (Clear) Urine pH 7.0 (5.0-9.0) Urine Specific [place] 1.009 (1.001-1.035) Urine Protein Negative (Negative) Urine Ketones Negative (Negative) Urine Blood Negative /uL (Negative) Urine Nitrite Negative (Negative) Urine Bilirubin Negative (Negative) Urine Urobilinogen Normal mg/dL (Negative) Urine Leukocyte Esterase Negative /uL (Negative) Urine RBC 2 /hpf (0 - 4) Urine Microscopic WBC < 1 /HPF (0-5) Urine Squamous Epithelial Cells Few /hpf (<5) Urine Bacteria Few /hpf (None Seen) Urine Glucose Normal mg/dL (Normal) Urine Opiates Screen Neg (NEGATIVE) Urine Fentanyl Screen Neg (NEGATIVE) Urine Barbiturates Screen Neg (NEGATIVE) Urine Phencyclidine Screen Neg (NEGATIVE) Urine Amphetamines Screen Neg (NEGATIVE) Urine Benzodiazepines Screen Neg (NEGATIVE) Urine Cocaine Screen Neg (NEGATIVE) Urine Cannabinoids Screen Neg (NEGATIVE) Other Laboratory Tests 08/17/25 05:10 Brief Hx & Hospital Course: Sasha Parekh is a 30-year old female with past medical history of asthma who came to the ER with the chief complaint of shortness of breath since 2 days, along with some congestion and a runny nose and had to use her albuterol inhaler more frequently than normal, that is every 4 hours. Patient also mentioned she had cough with phlegm and cold sweats, also associated with headache and body aches since 2 days. She denied any fever or chest pain. On evaluation, she had numbness and trembling of her hands with a tingling sensation in her left hand more than the right hand. Chest xray showed no acute abnormalities. She was started on med nebs every 4 hours along with prednisone 40mg po daily and she started feeling better and no longer complained of shortness of breath. She was explained thoroughly about stepping up her asthma medication regimen post discharge and she demonstrated understanding of the same. She was discharged home in a stable condition and asked to follow up in discharge clinic and with PCP. Past medical history: asthma (since she was 2 years old), gestational hypertension Past surgical history: C-sectionx2 Home medications:none Social & Personal history: lives at home with family Smoking: remote history of cigarette smoking Alcohol: denies Drugs:denies Allergies: no known allergies General Appearance: Cooperative. Well developed. Well nourished. NAD Head Exam: Normal inspection Neck Exam: Normal inspection. Non-tender. Normal alignment Pulmonary/Respiratory: Chest non-tender. Clear bilateral breath sounds, no crackles, no wheezing. Cardiovascular/Chest: Regular rate and rhythm. No murmurs. No JVD. Peripheral Pulses: 2+ Radial (R). 2+ Radial (L). 2+ Pedal (R). 2+ Pedal (L) Abdominal Exam: Normal bowel sounds. Soft. normal abdomen, no visible veins, Nontender. No hepatospenomegaly. No masses Ankle Exam: Negative ankle edema Lower extremities: Negative lower extremity edema Neuro/Mental Status: A&O x4. Coherent. Thoughts/Psych: Normal thought pattern. Appropriate mood and affect. Good judgement and insight Skin Exam: Normal inspection. Normal color. Warm. Dry Operations or Procedures 1.PROCEDURE(s): CXRP - CHEST PORTABLE REASON: sob ORDER NUMBER(s): [id number], ACCESSION NUMBER(s): [id number] XY CHEST PORTABLE, HISTORY: sob COMPARISON: None None TECHNICAL DATA: 1 view of the chest was obtained. FINDINGS: Lines and tubes: None Cardiomediastinal silhouette: normal Pulmonary vasculature: normal Lung expansion: normal Lung airspace: normal Lung interstitium: normal Pleura: normal Pneumothorax: no Bones: Unremarkable Other: no IMPRESSION: No acute intrathoracic abnormality. 2.PROCEDURE(s): EKG - ELECTROCARDIGRAM ORDER NUMBER(s): [id number], ACCESSION NUMBER(s): [id number] [facility] Test Date: 2025-08-15 Test Time: 15:32:47 Pat Name: SASHA PAREKH Department: [facility] ED Room: [facility] Gender: F Bilingual Trainer: minor : 1995 Requested By: GARY SALES Order Number: [id number] Reading MD: Measurements Intervals [place] Rate: 125 P: 72 [place]: 145 QRS: 44 QRSD: 83 T: 36 QT: 319 QTc: 460 Interpretive Statements Sinus tachycardia Low voltage, precordial leads Borderline repolarization abnormality Condition at Discharge: Fair Final Diagnosis/Problems List Acute hypoxic respiratory failure due to acute asthma exacerbation Ruled out ACS History of anxiety/panic attacks Discharge Disposition: Home Discharge Instruct/Medications Diet: Regular Activity: No Restrictions, As Tolerated Follow Up/Referral: follow up in D/C clinic follow up with PCP Medications: prednisone 40mg po daily for 5 days symbicort inhaler Scheduled Budesonide-Formoterol Fumarate (Budesonide/Formoterol Fum 80-4.5 Mcg/Act), 1 AER IN DAILY Prednisone (Prednisone), 40 MG PO DAILY Discontinued Medications Erythromycin (Erythromycin), 1 MG OP 6XD Discharge Statement: "Patient was advised to return to the ER or call 911 if any headaches, dizziness, shortness of breath, chest pain, abdominal pain, bleeding, fevers, or worsening of medical condition. Patient was counseled about treatment plan, medications, possible side effects, patientverbalized understanding. All questions were answered to the best of my ability. This discharge took greater then 30 minutes in planning, reviewing documentation, counseling the patient, and discussing with other team members." ASSESSMENT ASSESSMENT Assessment Acute hypoxic respiratory failure due to acute asthma exacerbation Ruled out ACS History of anxiety/panic attacks Date of Service: Aug 17, 2025 Billing Provider: KIET MATTHEWS MD Common Visit Codes: [id number] DISCH DAY >30min GARY SALES LEUNG RESIDENT Aug 17, 2025 09:40 KIET MATTHEWS MD Aug 18, 2025 23:25
== END 2025-08-17 13:12 | disposition home or self-care (01) ==
LOC: ER 11:34 → OVERFLOW 15:19 → UNDOADMOB 15:19 → EAST 18:01 → OVERFLOW 18:01 → EAST 21:08
PROVIDERS: ADMIT Internal Medicine
DX: J45.41 Moderate persistent asthma with (acute) exacerbation (principal); R51.9 Headache, unspecified; R20.2 Paresthesia of skin; R19.7 Diarrhea, unspecified; Z20.822 Contact with and (suspected) exposure to COVID-19; Z79.899 Other long term (current) drug therapy; Z98.890 Other specified postprocedural states
CPT/HCPCS: 36415; 71045; 80048; 80053; 80307; 81001; 83735; 84443; 84484; 85025; 87426; 87804; 93005; 94640; 96361; 96365; 99291; 99292; G0378; J2919; J3475; J7512

== ENCOUNTER 2025-10-01 02:09 | Emergency (ER) | payer MEDICAID ==
[~2025-10-01 02:09] MED LIST changes: +BUDE1AER5 IN; -ERY05OO OP; +PRED20TA2 PO
== END 2025-10-01 02:13 | disposition left against medical advice (07) ==
LOC: ER 02:13
DX: Z04.1 Encounter for examination and observation following transport accident (principal); Z53.21 Procedure and treatment not carried out due to patient leaving prior to being seen by health care provider